=== PATIENT | male | born 1960 | race Caucasian/White ===

== ENCOUNTER → 2016-03-23 | Outpatient (CLI) | payer BC ==
[2016-03-23 13:55] LABS: INFLUENZA A PCR POS for Influ A (NEG); INFLUENZA B PCR Neg for Influ B (NEG)
== END | disposition home or self-care (01) ==
LOC: C.LABBFT 10:02
PROVIDERS: ATTEND Internal Medicine
DX: R68.89 Other general symptoms and signs (principal)

== ENCOUNTER 2017-01-10 04:14 | Emergency (ER) | payer BC ==
[~2017-01-10] VITALS: Ht 182.9 cm; Wt 93.9 kg
[2017-01-10 04:16] VITALS: Ht 182.9 cm; Wt 93.9 kg
[2017-01-10 04:19] VITALS: O2SAT 97
--- NOTE | 2017-01-10 04:42 | EMERGENCY ROOM VISIT NOTE ---
History Report prepared by Javier: Tacho Valle Under the Supervision of: Dr. Carola Ramirez D.O. First contact with patient: 04:18 Chief Complaint: CARDIAC ASSESSMENT Stated Complaint: TIGHTNESS IN CHEST History of Present Illness The patient is a 56 year old male who presents to the Emergency Room with complaints of persistent upper abdominal/chest pain that woke him from sleep this morning at 0300, 1.5 hours prior to arrival. The patient states that he was woken up from sleep due to a pain in his central abdominal region which slowly radiated upward into his chest. He describes the pain as a "pressure." The pain is worsened with deep breathing, and it not radiating to any other locations. States had burgers and emmanuel with [employer] for dinner last night. States felt fine prior to going to bed. Denies any other change in medications or change in diet. Patient states he takes a medication for high triglycerides but has no other medical problems. 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 A total of 10 systems reviewed and were otherwise negative. Past Medical & Surgical Medical Problems: (1) No significant medical problems Surgical Problems: (1) No significant past surgical history Family History Diabetes mellitus FHx: cancer Gallbladder disease Hypertension Social History Smoking Status: Former Smoker Alcohol Use: none Marital Status: Occupation Status: employed Current/Historical Medications Scheduled Fish Oil ([place]-3), 1 CAP PO DAILY Gemfibrozil (Lopid), 600 MG PO BID Multiple Vitamins W/ Minerals (Mens 50+ Multi Vitamin &), 1 TAB PO DAILY Paroxetine Hcl (Paxil), 10 MG PO DAILY Potassium (Potassium), 99 MG PO DAILY Scheduled PRN Loratadine (Claritin), 10 MG PO DAILY PRN for allergy season Allergies Coded Allergies: Acetaminophen (Verified Allergy, Severe, urticaria, 01/10/17) Hydrocodone (Verified Allergy, Severe, urticaria, 01/10/17) Physical Exam Vital Signs Date Time Temp Pulse Resp B/P (MAP) Pulse Ox O2 Delivery O2 Flow Rate FiO2 01/10/17 11:21 71 18 137/88 95 01/10/17 10:30 67 16 138/98 94 Room Air 01/10/17 10:06 70 18 136/91 94 Room Air 01/10/17 08:26 67 01/10/17 07:52 66 16 151/95 99 Room Air 01/10/17 06:30 61 15 160/102 96 01/10/17 06:00 58 16 180/103 96 01/10/17 05:30 57 11 96 01/10/17 05:14 59 16 174/108 96 Room Air 01/10/17 05:13 174/108 01/10/17 05:00 57 19 01/10/17 04:31 97 Room Air 01/10/17 04:24 52 01/10/17 04:19 97 Room Air 01/10/17 04:16 57 22 199/104 97 Room Air Physical Exam GENERAL: alert, well appearing, well nourished, no distress, non-toxic EYE EXAM: normal conjunctiva, PERRL and EOM's grossly intact OROPHARYNX: no exudate, no erythema, lips, buccal mucosa, and tongue normal and mucous membranes are moist NECK: supple, no nuchal rigidity, no adenopathy, non-tender LUNGS: Clear to auscultation. Normal chest wall mechanics HEART: no murmurs, S1 normal and S2 normal ABDOMEN: abdomen soft, non-tender, normo-active bowel sounds, no masses, no rebound or guarding. BACK: Back is symmetrical on inspection and there is no deformity, no midline tenderness, no CVA tenderness. SKIN: no rashes and no bruising UPPER EXTREMITIES: upper extremities are grossly normal. LOWER EXTREMITIES: No pitting edema. NEURO EXAM: Normal sensorium Medical Decision & Procedures ER Provider Diagnostic Interpretation: Radiology results have been interpreted by me. CHEST X-RAY: Chest X-ray reveals no cardiomegaly, no pleural effusion, no wide mediastinum, no focal infiltrates. ABDOMEN X-RAY: Imaging shows scattered stool, no definite SVO, no free air. ABDOMEN 2VIEW W/PA CHEST RTN CLINICAL HISTORY: abd pain pain COMPARISON STUDY: No previous studies for comparison. FINDINGS: The soft tissues, psoas shadows, renal outlines and intestinal gas pattern appear normal. There is no evidence for bowel obstruction. There is no evidence for free intraperitoneal air. No abnormal abdominal calcifications are seen. A frontal view of the chest was performed and is unremarkable. Mild nonobstructive ileus IMPRESSION: Mild nonobstructive ileus. Negative chest. The above report was generated using voice recognition software. It may contain grammatical, syntax or spelling errors. Electronically signed by: Quan Cronin M.D. 01/10/2017 6:42 AM Dictated Date/Time: 01/10/2017 6:41 AM [~ rep ct add3]] ABDOMEN AND PELVIS CT WITH IV CONTRAST CT DOSE: 591.27 mGy.cm HISTORY: Acute generalized abdominal pain with nausea abd pain, nausea TECHNIQUE: Multiaxial CT images of the abdomen and pelvis were performed following the use of intravenous contrast. A dose lowering technique was utilized adhering to the principles of ALARA. COMPARISON STUDY: Acute abdominal series radiographs 01/10/2017. FINDINGS: Mild dependent subsegmental bibasilar atelectasis. Subtle linear 4 mm pulmonary nodule of the lateral segment right middle lobe as seen on image 12 series 3. Pleural-based 4 mm nodule of the right middle lobe seen on image 35 series 3. No pneumoperitoneum or pneumatosis. Coronary arterial calcifications are noted. The liver, spleen, pancreas and adrenal glands are unremarkable. Small lucencies are noted within the region of the gallbladder neck as seen on image 148 series 3 suggesting nitrogen gas containing cholelithiasis. There is mild diffuse gallbladder wall thickening with mild gallbladder distention. Subcentimeter low attenuating lesions of the left kidney are too small to characterize however suggest cysts. Right kidney is unremarkable. Ureters are unremarkable. There is mild wall thickening of the bladder, greatest anteriorly. Prostate is mildly enlarged. Mild mixed plaquing of the aorta. No bulky adenopathy. There is no bowel obstruction or focal bowel wall thickening. No significant dilated loops of bowel identified to suggest ileus. The appendix appears normal. Soft tissues are unremarkable. Multilevel endplate spurring is noted throughout the spine. IMPRESSION: 1. Mild gallbladder distention with mild diffuse edematous gallbladder wall thickening suggests acute cholecystitis. Foci of air within the gallbladder lumen suggests gas containing cholelithiasis. Correlate with right upper quadrant ultrasound. 2. No bowel obstruction or focal bowel wall thickening. 3. Prostatomegaly with mild wall thickening of the bladder suggesting sequela of chronic bladder outlet obstruction or cystitis. This could be correlated with urinalysis. Electronically signed by: Cruz Salas M.D. 01/10/2017 8:26 AM Dictated Date/Time: 01/10/2017 8:17 AM Laboratory Results 01/10/17 04:25 Red Blood Count 4.63, Mean Corpuscular Volume 90.3, Mean Corpuscular Hemoglobin 31.7, Mean Corpuscular Hemoglobin Concent 35.2, Mean Platelet Volume 9.9, Neutrophils (%) (Auto) 52.4, Lymphocytes (%) (Auto) 33.6, Monocytes (%) (Auto) 9.2, Eosinophils (%) (Auto) 3.6, Basophils (%) (Auto) 1.1, Neutrophils # (Auto) 3.99, Lymphocytes # (Auto) 2.55, Monocytes # (Auto) 0.70, Eosinophils # (Auto) 0.27, Basophils # (Auto) 0.08 01/10/17 04:25 Test 01/10/17 04:25 01/10/17 04:38 01/10/17 07:37 White Blood Count 7.60 K/uL (4.8-10.8) Red Blood Count 4.63 M/uL (4.7-6.1) Hemoglobin 14.7 g/dL (14.0-18.0) Hematocrit 41.8 % (42-52) Mean Corpuscular Volume 90.3 fL (80-100) Mean Corpuscular Hemoglobin 31.7 pg (25-34) Mean Corpuscular Hemoglobin Concent 35.2 g/dl (32-36) Platelet Count 316 K/uL (130-400) Mean Platelet Volume 9.9 fL (7.4-10.4) Neutrophils (%) (Auto) 52.4 % Lymphocytes (%) (Auto) 33.6 % Monocytes (%) (Auto) 9.2 % Eosinophils (%) (Auto) 3.6 % Basophils (%) (Auto) 1.1 % Neutrophils # (Auto) 3.99 K/uL (1.4-6.5) Lymphocytes # (Auto) 2.55 K/uL (1.2-3.4) Monocytes # (Auto) 0.70 K/uL (0.11-0.59) Eosinophils # (Auto) 0.27 K/uL (0-0.5) Basophils # (Auto) 0.08 K/uL (0-0.2) RDW Standard Deviation 41.3 fL (36.4-46.3) RDW Coefficient of Variation 12.6 % (11.5-14.5) Immature Granulocyte % (Auto) 0.1 % Immature Granulocyte # (Auto) 0.01 K/uL (0.00-0.02) Anion Gap 9.0 mmol/L (3-11) Est Creatinine Clear Calc Drug Dose 76.0 ml/min Estimated GFR () 72.4 Estimated GFR (Non- 62.5 BUN/Creatinine Ratio 14.5 (10-20) Calcium Level 9.1 mg/dl (8.5-10.1) Total Bilirubin 0.4 mg/dl (0.2-1) Aspartate Amino Transf (AST/SGOT) 18 U/L (15-37) Alanine Aminotransferase (ALT/SGPT) 37 U/L (12-78) Alkaline Phosphatase 106 U/L (45-117) Total Protein 7.6 gm/dl (6.4-8.2) Albumin 4.0 gm/dl (3.4-5.0) Globulin 3.6 gm/dl (2.5-4.0) Albumin/Globulin Ratio 1.1 (0.9-2) Lipase 151 U/L (73-393) Lactic Acid Level 1.5 mmol/L (0.4-2.0) Troponin I < 0.015 ng/ml (0-0.045) Laboratory results per my review. Medications Administered Medications (Trade) Dose Ordered Sig/Leora Route Start Time Stop Time Status Last Admin Dose Admin Al Hydroxide/Mg Hydroxide (Maalox Susp) 15 ml NOW STAT PO 01/10/17 06:00 01/10/17 06:01 DC 01/10/17 06:36 15 ML Famotidine 20 mg/ Syringe 5 ml @ 2.5 mls/min NOW ONCE IV 01/10/17 06:30 01/10/17 06:31 DC 01/10/17 06:36 2.5 MLS/MIN ECG Indication: chest pain Rate (beats per minute): 58 Rhythm: normal sinus Findings: no acute ischemic change, no ectopy, other (Normal [place] normal intervalst) ED Course 0426: The patient was evaluated in room B2. A complete history and physical exam was performed. 0557: I checked on the patient at this time. He feels better, but is still experiencing some discomfort. 0725: Patient reports no chest tightness or discomfort at this time, still feels some abdominal discomfort and was nauseated following the Maalox. 0836: Patient updated on CT results. Ultrasound ordered. Discussed with patient at bedside potential plans and disposition. Patient signed out to Dr. Serrano. Medical Decision Differential diagnosis: Etiologies such as cardiac ischemia, aortic dissection, pulmonary embolism, pneumonia, pneumothorax, musculoskeletal, infections, pericarditis, myocarditis , esophageal rupture, gastrointestinal, as well as others were entertained. HEART score 2 Pt with atypical presentation for ACS despite radiation of pain into chest. Pain improved by my exam, equal pulses and no radiation into back, low suspicion for vascular pathology. No relief with GI meds, CT scan revealed possible biliary pathology. VS stable throughout. Pt aware of all results and possible dispositions at time of sign out. Medication Reconcilliation Current Medication List: was personally reviewed by me Blood Pressure Screening Patient's blood pressure: Elevated blood pressure Blood pressure disposition: Elevated BP felt to be situational Impression Primary Impression: Abdominal pain Additional Impressions: Hypertension Cholelithiases Scribe Attestation The scribe's documentation has been prepared under my direction and personally reviewed by me in its entirety. I confirm that the note above accurately reflects all work, treatment, procedures, and medical decision making performed by me. Departure Information Referrals Romain Corley M.D. (PCP) Patient Instructions [facility] Problem Qualifiers Primary Impression: Abdominal pain Abdominal location: lower abdomen, unspecified Qualified Codes: R10.30 - Lower abdominal pain, unspecified Additional Impressions: Hypertension Hypertension type: essential hypertension Qualified Codes: I10 - Essential ( primary) hypertension Cholelithiases Cholelithiasis location: gallbladder Cholecystitis presence: without cholecystitis Biliary obstruction: without biliary obstruction Qualified Codes: K80.20 - Calculus of gallbladder without cholecystitis without obstruction
[2017-01-10 04:46] LABS: BASO % 1.1 %; BASO ABS # 0.08 K/uL (0-0.2); COMPLETE YES; EOS % 3.6 %; HEMATOCRIT 41.8 % (42-52); IG% 0.1 %; LYMPH % 33.6 %; LYMPH ABS # 2.55 K/uL (1.2-3.4); MEAN CELL VOLUME 90.3 fL (80-100); MEAN CORPUSCULAR HEMOGLOBIN 31.7 pg (25-34); MEAN CORPUSCULAR HGB CONC 35.2 g/dl (32-36); MEAN PLATELET VOLUME 9.9 fL (7.4-10.4); MONO % 9.2 %; NEUT % 52.4 %; PLATELET COUNT 316 K/uL (130-400); RED BLOOD COUNT 4.63 M/uL (4.7-6.1)
[2017-01-10 04:53] LABS: ALT/SGPT 37 U/L (12-78); AST/SGOT 18 U/L (15-37); BLOOD UREA NITROGEN 18 mg/dl (7-18); BUN/CREATININE RATIO 14.5 (10-20); CALCIUM 9.1 mg/dl (8.5-10.1); CARBON DIOXIDE 27 mmol/L (21-32); CHLORIDE 102 mmol/L (98-107); CREATININE 1.26 mg/dl (0.60-1.40); GLUCOSE 112 mg/dl (70-99); POTASSIUM 3.4 mmol/L (3.5-5.1); SODIUM 138 mmol/L (136-145)
[2017-01-10 04:58] LABS: ALB/GLOB RATIO 1.1 (0.9-2); ALKALINE PHOSPHATASE 106 U/L (45-117)
[2017-01-10] MEDS ORDERED: POTA99TA PO (05:07)
[2017-01-10] MEDS ORDERED: GEMF600T3 PO (05:07)
[2017-01-10] MEDS ORDERED: PARO10TA PO (05:07)
[2017-01-10] MEDS ORDERED: CLR10 PO (05:07)
[2017-01-10] MEDS ORDERED: MULT-599 PO (05:07)
[2017-01-10] MEDS ORDERED: OMEG10007 PO (05:07)
[2017-01-10] MEDS ORDERED: ALUMINUM/MAGNESIUM SUSP 30 ML UDC PO STA (06:00)
[2017-01-10] MEDS ORDERED: FAMOTIDINE 20MG/5ML IV PUSH IV STA (06:00)
[2017-01-10] MEDS ORDERED: FAMOTIDINE IV INJ 20 MG in SYRINGE 3 ML IV ONE (06:30)
--- NOTE | 2017-01-10 06:43 | DIAGNOSTIC IMAGING REPORT ---
ABDOMEN 2VIEW W/PA CHEST RTN CLINICAL HISTORY: abd pain pain COMPARISON STUDY: No previous studies for comparison. FINDINGS: The soft tissues, psoas shadows, renal outlines and intestinal gas pattern appear normal. There is no evidence for bowel obstruction. There is no evidence for free intraperitoneal air. No abnormal abdominal calcifications are seen. A frontal view of the chest was performed and is unremarkable. Mild nonobstructive ileus IMPRESSION: Mild nonobstructive ileus. Negative chest. The above report was generated using voice recognition software. It may contain grammatical, syntax or spelling errors. Electronically signed by: Quan Cronin M.D. 01/10/2017 6:42 AM Dictated Date/Time: 01/10/2017 6:41 AM
[2017-01-10] MEDS ORDERED: OPTIRAY 320 IV PRN (07:30)
[2017-01-10] MEDS ORDERED: DICYCLOMINE HCL 10 MG CAP PO ONE (08:15)
--- NOTE | 2017-01-10 08:27 | DIAGNOSTIC IMAGING REPORT ---
ABDOMEN AND PELVIS CT WITH IV CONTRAST CT DOSE: 591.27 mGy.cm HISTORY: Acute generalized abdominal pain with nausea abd pain, nausea TECHNIQUE: Multiaxial CT images of the abdomen and pelvis were performed following the use of intravenous contrast. A dose lowering technique was utilized adhering to the principles of ALARA. COMPARISON STUDY: Acute abdominal series radiographs 01/10/2017. FINDINGS: Mild dependent subsegmental bibasilar atelectasis. Subtle linear 4 mm pulmonary nodule of the lateral segment right middle lobe as seen on image 12 series 3. Pleural-based 4 mm nodule of the right middle lobe seen on image 35 series 3. No pneumoperitoneum or pneumatosis. Coronary arterial calcifications are noted. The liver, spleen, pancreas and adrenal glands are unremarkable. Small lucencies are noted within the region of the gallbladder neck as seen on image 148 series 3 suggesting nitrogen gas containing cholelithiasis. There is mild diffuse gallbladder wall thickening with mild gallbladder distention. Subcentimeter low attenuating lesions of the left kidney are too small to characterize however suggest cysts. Right kidney is unremarkable. Ureters are unremarkable. There is mild wall thickening of the bladder, greatest anteriorly. Prostate is mildly enlarged. Mild mixed plaquing of the aorta. No bulky adenopathy. There is no bowel obstruction or focal bowel wall thickening. No significant dilated loops of bowel identified to suggest ileus. The appendix appears normal. Soft tissues are unremarkable. Multilevel endplate spurring is noted throughout the spine. IMPRESSION: 1. Mild gallbladder distention with mild diffuse edematous gallbladder wall thickening suggests acute cholecystitis. Foci of air within the gallbladder lumen suggests gas containing cholelithiasis. Correlate with right upper quadrant ultrasound. 2. No bowel obstruction or focal bowel wall thickening. 3. Prostatomegaly with mild wall thickening of the bladder suggesting sequela of chronic bladder outlet obstruction or cystitis. This could be correlated with urinalysis. Electronically signed by: Cruz Salas M.D. 01/10/2017 8:26 AM Dictated Date/Time: 01/10/2017 8:17 AM
--- NOTE | 2017-01-10 09:57 | DIAGNOSTIC IMAGING REPORT ---
GALLBLADDER-ABD LIMITED HISTORY: 56 years-old Male abn CT, abd pain and nausea acute generalized abdominal pain with nausea. Suggested acute cholecystitis on comparison CT. COMPARISON: CT 01/10/2017 TECHNIQUE: Multiple real-time sonographic images of the abdominal right upper quadrant were obtained assessing grayscale appearance and color flow. FINDINGS: Pancreas is predominantly obscured by bowel gas. There is increased echogenicity of the liver suggesting fatty infiltration. Liver measures up to 18 cm in length. Mild gallbladder distention is noted with layering gallbladder stones and sludge. Edematous thickened gallbladder wall measures up to 7 mm circumferentially. No definite pericholecystic fluid collections. Sonographic Padgett sign was not reported. No intrahepatic biliary ductal dilation identified. Common bile duct is normal, 0.6 cm. Imaged right kidney is unremarkable without hydronephrosis. IMPRESSION: 1. Cholelithiasis and layering gallbladder sludge is noted in addition to edematously thickened bladder wall measuring up to 7 mm circumferentially. There was however no pericholecystic fluid and a sonographic Padgett sign was not reported. These findings are equivocal for acute cholecystitis. Correlate with clinical exam and laboratory values. A follow-up nuclear medicine hepatobiliary scan may also be beneficial if clinically indicated. 2. No biliary ductal dilation. The above report was generated using voice recognition software. It may contain grammatical, syntax or spelling errors. Electronically signed by: Cruz Salas M.D. 01/10/2017 9:56 AM Dictated Date/Time: 01/10/2017 9:51 AM
--- NOTE | 2017-01-10 11:12 | EMERGENCY ROOM VISIT NOTE ---
ED Visit Note First contact with patient: 10:59 56-year-old male with right upper quadrant abdominal pain was signed off to me from Dr. Ramirez at change of shift awaiting results of the ultrasound. That imaging study did return revealing no definite cholecystitis. The patient's white count is not elevated. Patient feels fine and would like to home. I did advise him that he will need a cholecystectomy in the near future. He is to make an appointment with his family physician this week. In the meantime, the patient was advised about avoiding fried or fatty foods.
[2017-01-10 11:21] VITALS: BP 137/88; PULSE 71; O2SAT 95
== END 2017-01-10 11:21 | disposition home or self-care (01) ==
LOC: C.EDB 04:14
DX: R10.30 Lower abdominal pain, unspecified (principal); I10 Essential (primary) hypertension; K80.20 Calculus of gallbladder without cholecystitis without obstruction; R10.11 Right upper quadrant pain; Z87.891 Personal history of nicotine dependence; Z83.3 Family history of diabetes mellitus; Z82.49 Family history of ischemic heart disease and other diseases of the circulatory system

== ENCOUNTER 2017-02-08 06:29 | Day surgery (SDC) | payer BC ==
[2017-02-01 15:29] VITALS: BMI 27.0
[~2017-02-08] VITALS: Ht 182.9 cm; Wt 92.4 kg
[~2017-02-08 06:29] MED LIST: AMLO5TAB3 PO; ASCA500 PO; CETI10TA84 PO; GEMF600T5 PO; GINK40TA3 PO; LACTATED RINGER'S 1000ML 1,000 ML IV SCH; MULT-599 PO; OMEG10007 PO; PARO10TA PO; POTA99TA PO
[2017-02-08] MEDS ORDERED: IBUP-1050 PO (06:59)
[2017-02-08 07:00] VITALS: BP 154/88; PULSE 65; TEMP 36.9; O2SAT 95; Ht 182.9 cm; Wt 92.4 kg
[2017-02-08] MEDS ORDERED: DEXAMETHASONE SOD INJ 4 MG/ML VIAL ONE (07:49)
[2017-02-08] MEDS ORDERED: ONDANSETRON INJ 2 MG/ML 2 ML VIAL ONE (07:49)
[2017-02-08] MEDS ORDERED: PROPOFOL IV EMULSION 10 MG/ML 20 ML VIAL IV ONE (07:49)
[2017-02-08] MEDS ORDERED: LIDOCAINE HCL 2% 2 ML VIAL (20MG/ML) ONE (07:49)
[2017-02-08] MEDS ORDERED: FENTANYL CITRATE INJ 50 MCG/1 ML 2 ML VIAL ONE (07:50)
[2017-02-08] MEDS ORDERED: MIDAZOLAM HCL 1 MG/ML 2ML VIAL ONE (07:50)
--- NOTE | 2017-02-08 08:14 | History & Physical Bridge Note ---
H&P Re-Evaluation Bridge Note: I have examined the patient, reviewed the History & Physical and in the interval since the performance of the History & Physical I have noted the following changes of clinical significance: No changes noted pt examined SO at bedside, all questions answered
[2017-02-08] MEDS ORDERED: TRAM-453 PO (08:15)
[2017-02-08] MEDS ORDERED: CEFAZOLIN SOD 1 GM VIAL ONE (08:19)
[2017-02-08] MEDS ORDERED: CONRAY 60% 50 ML VIAL ONE (08:21)
[2017-02-08] MEDS ORDERED: LIDOCAINE/EPINEPHRINE 1% 20 ML VIAL ONE (08:21)
[2017-02-08] MEDS ORDERED: HYDROmorphone INJ 1 MG/ML SYR IV PRN (08:30)
[2017-02-08] MEDS ORDERED: MEPERIDINE HCL 25 MG/ML CARP IV PRN ×2 (08:30→09:45)
[2017-02-08] MEDS ORDERED: ONDANSETRON INJ 2 MG/ML 2 ML VIAL IV PRN ×2 (08:30→09:45)
[2017-02-08] MEDS ORDERED: LABETALOL HCL IV 5 MG/ML 20ML IV PRN (08:30)
[2017-02-08] MEDS ORDERED: ATROPINE SULFATE 0.1 MG/ML 5ML SYR IV PRN (08:30)
[2017-02-08] MEDS ORDERED: FENTANYL CITRATE INJ 50 MCG/1 ML 2 ML VIAL IV PRN (08:30)
[2017-02-08] MEDS ORDERED: EpHEDrine SULFATE INJ 50 MG/ML AMP IV PRN (08:30)
[2017-02-08] MEDS ORDERED: KETOROLAC TROMETHAMINE 30 MG/ML VIAL ONE (09:23)
[2017-02-08] MEDS ORDERED: GLYCOPYRROLATE INJ 0.2 MG/ML VIAL ONE (09:23)
[2017-02-08] MEDS ORDERED: NEOSTIGMINE METHYLSULFATE 5 MG/5 ML SYR ONE (09:23)
[2017-02-08] MEDS ORDERED: EpHEDrine SULFATE INJ 50 MG/ML AMP ONE (09:24)
[2017-02-08] MEDS ORDERED: ROCURONIUM BROMIDE 10 MG/ML 5 ML VIAL IV ONE (09:26)
--- NOTE | 2017-02-08 09:29 | DIAGNOSTIC IMAGING REPORT ---
INTRAOPERATIVE CHOLANGIOGRAM HISTORY: Post cholecystectomy. FLUOROSCOPY TIME: 2 seconds. 3 fluoroscopic spot images of the right upper quadrant. FINDINGS: Fluoroscopy was provided for an intraoperative cholangiogram status post cholecystectomy. Contrast was injected through the cystic duct remnant. The common bile duct is normal in course and caliber. There are no filling defects seen within the common bile duct to suggest a retained stone. Contrast extends into the small bowel. There is no intrahepatic bile duct dilatation. IMPRESSION: Fluoroscopy provided for an intraoperative cholangiogram status post cholecystectomy. No filling defects within the common bile duct. Electronically signed by: José Miguel Noonan M.D. 02/08/2017 9:28 AM Dictated Date/Time: 02/08/2017 9:23 AM
[2017-02-08] MEDS ORDERED: LACTATED RINGER'S 1000ML 1,000 ML IV SCH (09:43)
--- NOTE | 2017-02-08 09:43 | Discharge Instructions ---
Discharge Instructions Date of Service Feb 08, 2017. Visit Reason for Visit: Cholelithiasis Discharge Discharge Diagnosis / Problem: laparoscopic cholecystectomy Discharge Goals Goal(s): Decrease discomfort Activity Recommendations Activity Limitations: as noted below Lifting Limitations: no more than 10 pounds Shower/Bathe: tomorrow Driving or Machine Use: resume 3 days after discharge Anesthesia . Post Anesthesia Instructions: If you have had General Anesthesia or IV Sedation: * Do not drive today. * Resume driving when surgeon permits. * Do not make important decisions or sign legal documents today. * Call surgeon for: 1. Temperature elevations greater than 101 degrees F. 2. Uncontrollable pain. 3. Excessive bleeding. 4. Persistent nausea and vomiting. 5. Medication intolerance (nausea, vomiting or rash). * For nausea and vomiting use only clear liquids such as: tea, soda, bouillon until nausea subsides, then gradually increase diet as tolerated. * If you have any concerns or questions, call your surgeon's office. If physician is unavailable and it is an emergency, call 911 or go to the nearest emergency room. . Instructions / Follow-Up Instructions / Follow-Up Dr. Nuñez office in 2-3 days for removal of the drain, call [phone] to schedule if you do not already have an appt or have any questions Empty drain bulb 2-3 times daily or as needed Diet Recommendations Recommended Home Diet: no limitations Procedures Procedures Performed: Laparoscopic Cholecystectomy with Cholangiogram Pending Studies Studies pending at discharge: no Medical Emergencies . Who to Call and When: Medical Emergencies: If at any time you feel your situation is an emergency, please call 911 immediately. . Non-Emergent Contact Non-Emergency issues call your: Surgeon Call Non-Emergent contact if: you have a fever, temperature is above 101.5, your pain is not controlled, wound has increased pain, you have any medication questions . . "Provider Documentation" section prepared by Rogers Herring. . [place] Drug Monitoring Program Search Results: no issues identified
[2017-02-08] MEDS ORDERED: TRAMADOL HCL 50 MG TAB PO PRN (09:45)
--- NOTE | 2017-02-08 09:50 | [facility] Operative Report ---
Operative Report Operative Date Feb 08, 2017. Pre-Operative Diagnosis Cholelithiasis Post-Operative Diagnosis Same Procedure(s) Performed Laparoscopic Cholecystectomy with Cholangiogram Surgeon Dr Nuñez Case Technician Surgeon(s) Rogers Herring PA-C Estimated Blood Loss 5ML Findings ccc Specimens A. Gallbladder Drains 19 becca per stab Description of Procedure OR summary dictATED CONFIRMATION NUMBER [id number] I attest to the content of the Intraoperative Record and any orders documented therein. Any exceptions are noted below.
[2017-02-08 10:40] VITALS: BP 132/74; PULSE 63; TEMP 36.4; O2SAT 94
--- NOTE | 2017-02-08 10:43 | Anesthesiology Progress Note ---
Anesthesia Post Op Note Date & Time Feb 08, 2017 at 10:42 Vital Signs Pain Intensity: 3 Vital Signs Past 12 Hours Date Time Temp Pulse Resp B/P (MAP) Pulse Ox O2 Delivery O2 Flow Rate FiO2 02/08/17 10:30 36.7 70 12 135/86 95 Room Air 02/08/17 10:20 67 14 138/92 93 Room Air 02/08/17 10:10 64 17 142/87 93 Room Air 02/08/17 10:00 64 15 154/94 98 Oxymask 10 02/08/17 09:50 67 14 134/101 97 Oxymask 10 02/08/17 09:44 36.8 83 16 182/97 98 Oxymask 10 02/08/17 07:00 36.9 65 18 154/88 (110) 95 Room Air Notes Mental Status: alert / awake / arousable, participated in evaluation Pt Amnestic to Procedure: Yes Nausea / Vomiting: adequately controlled Pain: adequately controlled Airway Patency, RR, SpO2: stable & adequate BP & HR: stable & adequate Hydration State: stable & adequate Anesthetic Complications: no major complications apparent
--- NOTE | 2017-02-08 11:04 | OPERATIVE REPORT ---
DATE OF OPERATION: 02/08/2017 PREOPERATIVE DIAGNOSIS: Chronic cholecystitis, cholelithiasis. POSTOPERATIVE DIAGNOSIS: Same. PROCEDURE: Laparoscopic cholecystectomy, intraoperative cholangiogram. SURGEON: Dr. Nuñez. FARMER AND GRAZIER: Krishan Herring PA-C. OPERATION AND FINDINGS: SUMMARY: After induction of general endotracheal anesthesia the patient's abdomen was prepped with Betadine scrubbing solution and properly draped. I made a small incision supraumbilically sufficient enough to place a Veress needle followed by CO2 followed by 5 mm trocar. Point of entry inspected and no injury identified. Under direct visualization we placed a 5 mm epigastric port with preemptive local analgesia 1% Xylocaine and 2 subcostal ports 5 mm. Gallbladder was identified, placing under traction. Did not have any significant adhesions to the gallbladder. The batsheva hepatis was dissected out. We were able to get around the cystic duct, clipped it proximally at its takeoff. A small opening in the cystic duct was made. A #4 ureteral catheter transversed the abdominal wall and a 14 Angiocath was positioned in the cystic duct. Serial x-rays were taken that showed free flow into the duodenum. No obstruction and no evidence of any common bile duct stones. At this point the cholangiocath was removed. The cystic duct was doubly clipped and divided. The cystic artery was identified, clipped and divided. Gallbladder was removed in antegrade fashion leaving as much of the posterior peritoneum as possible, though the patient did bleed quite easily from the liver edge in multiple areas. Gallbladder was then removed intact up to the epigastric port site and had multiple stones, mostly cholesterol and some sludge. The area was then checked for hemostasis and appeared satisfactory. We did cauterize few areas and as stated had easily bleeding was appreciated from the liver parenchyma itself, although grossly looked normal. I elected then to drain this with 19 Aaron drain subhepatically, bring it medially in the epigastric port taken out lateral port, attached to skin edges with 2-0 silk placed subhepatically. Prior to closing, we placed a camera in subcostal ports and visualized the umbilical opening. There were no adhesions or any defect appreciated. Individual trocars removed, last umbilical trocar. 0 Vicryl suture was used to close the epigastric trocar site even though it was a 5 mm. We slightly enlarged it with a Adrien or Negra to try to extract the stones and the other ones were 4-0 Monocryl. Steri-Strips applied. The procedure was tolerated well by the patient. Estimated blood loss approximately 5 mL. The patient was taken to recovery room in good condition. I attest to the content of the Intraoperative Record and any orders documented therein. Any exception s are noted below.
[2017-02-08 11:10] VITALS: BP 118/75; PULSE 68; O2SAT 93
[2017-02-08 11:45] VITALS: BP 116/65; PULSE 68; TEMP 36.7; O2SAT 94
[2017-02-08 12:45] VITALS: BP 120/65; PULSE 68; TEMP 36.7; O2SAT 95; O2SAT 98
== END 2017-02-08 14:05 | disposition home or self-care (01) ==
LOC: C.ACU 06:29
PROVIDERS: ATTEND Surgery
DX: K80.10 Calculus of gallbladder with chronic cholecystitis without obstruction (principal); I10 Essential (primary) hypertension; F32.9 Major depressive disorder, single episode, unspecified; E78.01 Familial hypercholesterolemia; E78.1 Pure hyperglyceridemia; Z83.3 Family history of diabetes mellitus; Z82.5 Family history of asthma and other chronic lower respiratory diseases; Z80.3 Family history of malignant neoplasm of breast; Z80.42 Family history of malignant neoplasm of prostate; Z80.0 Family history of malignant neoplasm of digestive organs; Z82.49 Family history of ischemic heart disease and other diseases of the circulatory system

== ENCOUNTER → 2017-09-13 | Outpatient (CLI) | payer BC ==
[~2017-09-13] MED LIST changes: +GEMF600T3 PO; -GEMF600T5 PO; +IBUP-1050 PO; -LACTATED RINGER'S 1000ML 1,000 ML IV SCH
--- NOTE | 2017-09-13 09:01 | DIAGNOSTIC IMAGING REPORT ---
(CHEST) THORAX WITHOUT CT DOSE: 358.22 mGy.cm HISTORY: Lung nodule R91.8 Multiple pulmonary nodules TECHNIQUE: Multiaxial CT images of the chest were performed without contrast. A dose lowering technique was utilized adhering to the principles of ALARA. COMPARISON: None. FINDINGS: The lungs are clear. The mediastinal vascular structures are within normal limits. No mediastinal or hilar lymphadenopathy. No pleural effusion or pneumothorax. Limited views of the upper abdomen demonstrate a normal liver and spleen. 4 mm nonspecific nodule right middle lobe. Minimal apical fibrotic and pleural reactive change. No significant mediastinal or hilar adenopathy. IMPRESSION: 1. 4 mm nonspecific nodule right middle lobe. 2. Minimal apical fibrotic pleural reactive change.. 3. Otherwise negative study. Follow-up per Fleischner criteria. Please refer to below summary of Fleischner criteria recommendations for follow-up of incidental CT nodules (Dav Miller, Guidelines for management of small pulmonary nodules detected on CT scans: A statement from the Fleischner Society, Radiology 237: [phone].) SOLID NODULES Solitary nodule size: <6 mm * low risk patients: no follow-up needed * high risk patients: optional CT at 12 months Solitary nodule size: 6-8 mm * low risk patients: follow-up at 6-12 months, then consider further follow-up at 18-24 months * high risk patients: initial follow-up CT at 6-12 months and then at 18-24 months if no change Solitary nodule size: >8 mm * either low or high risk patients - consider follow-up CT at 3 months, and/or CT-PET, and/or biopsy Multiple nodules size: <6 mm * low risk patients: no routine follow-up * high risk patients: optional CT at 12 months Multiple nodules size: 6-8 mm * low risk patients: follow-up at 3-6 months, then consider further follow-up at 18-24 months * high risk patients: follow-up at 3-6 months, then at 18-24 months if no change Multiple nodules size: >8 mm * low risk patients: follow-up at 3-6 months, then consider further follow-up at 18-24 months * high risk patients: follow-up at 3-6 months, then at 18-24 months if no change Note: newly detected indeterminate nodule in persons 35 years of age or older. * low risk patients: minimal or absent history of smoking and/or other known risk factors * high risk patients: history of smoking or of other known risk factors (e.g. first degree relative with lung cancer, or exposure to asbestos, radon, uranium) * if a nodule up to 8 mm is partly solid or is ground glass further follow-up is required after 24 months to exclude possible slow growing adenocarcinoma (ROYA) SUBSOLID NODULES Solitary pure ground-glass nodule * nodule size <6 mm - no CT follow-up required * nodule size >=6 mm - follow-up CT at 6-12 months, then every 2 years until 5 years Solitary part-solid nodule * nodule size <6 mm - no CT follow-up required * nodule size >=6 mm - follow-up CT at 3-6 months. If unchanged, and solid component remains <6 mm, then annual follow-up for 5 years Multiple subsolid nodules * nodule size <6 mm - follow-up CT at 3-6 months, consider further follow-up at 2 and 4 years if stable * nodule size >=6 mm - follow-up CT at 3-6 months, subsequent management based on the most suspicious nodule(s) . The above report was generated using voice recognition software. It may contain grammatical, syntax or spelling errors. Electronically signed by: Quan Cronin M.D. 09/13/2017 8:59 AM Dictated Date/Time: 09/13/2017 8:53 AM
== END | disposition home or self-care (01) ==
LOC: C.CTS 08:22
PROVIDERS: ATTEND Internal Medicine
DX: R91.8 Other nonspecific abnormal finding of lung field (principal)

== ENCOUNTER 2025-01-17 11:46 | Inpatient (IN) ==
--- NOTE | 2025-01-17 12:01 | Emergency Department Note ---
Impression & Plan Acute hypoxemic respiratory failure, Pneumonia, Chest tightness ED Provider Note NAME: MARANDA LAUREANO AGE: 64 SEX: M : 1960 ARRIVES VIA: Walk-In INFORMANT: Patient, ED PROVIDER(S): Blane Stover MD CHIEF COMPLAINT: Chest tightness, hypoxia, outpatient referral MEDICAL DECISION MAKING: Patient presents due to concern for lower respiratory symptoms chest tightness and hypoxia. IV was established and blood work was obtained. Patient ordered IV fluids as well as DuoNeb treatment. Patient's blood work was noted to be white count of 21,000. Given this even in light of no evidence of obvious consolidated pneumonia IV Rocephin and p.o. azithromycin ordered. Patient's hemoglobin of 13.8. Platelet count of 513. Patient's kidney function is unremarkable. Sodium of 131. Potassium 3.3. Lactate negative. COVID flu RSV negative. Given the patient's associated hypoxia and white count to believe the patient would benefit from admission. I did speak the on-call hospitalist Dr. Condon and the patient was admitted to the medicine service. I did update the patient he was comfortable plan of care as it was his . Critical Care: I have personally spent 37 minutes of critical care time in direct management of this patient. This includes bedside care, interpretation of diagnostic studies, and testing, discussion with consultants, patient, and family members, and other require inpatient management activities. This 37 minutes is in excess of all separately billable procedures. Discussion w/ other healthcare providers: Dr. Condon inpatient medicine service Prior /Outside records reviewed: I reviewed part of a PCP's visit from earlier today. Patient was seen by Jolie Hughes and was referred for hypoxia and tachycardia. Differential diagnosis: Cardiac ischemia, aortic dissection, pulmonary embolism, pneumothorax, pneumonia, pericarditis, myocarditis, GERD, cholecystitis, pancreatitis, musculoskeletal, as well as other pathologies were considered. Diagnostics, as interpreted by me: ECG: Normal sinus rhythm, rate of 91, normal intervals, normal axis no ST elevations or T WI. Cardiac monitoring: An order was placed for continuous cardiac monitoring. The monitor shows a rate of 89 with sinus rhythm. Patient was placed on pulse oximetry Medical decision rules: Wells score Imaging studies: I informally interpreted the patient's chest x-ray does not show evidence of obvious pneumonia with formal report to follow. HPI: Patient presents due to concern for chest tightness and shortness of breath. The patient has had associated productive discolored sputum over the last several days. No known sick contacts or recent travel. Denies any leg swelling or calf pain no history of smoking. He denies any prior history of heart or lung disease. No reported falls or trauma. No recent large gatherings over the . The patient was seen at the PCPs office and was noted to be hypoxic. Patient does not have an oxygen requirement at home. He denies any history of heart failure. He does have associated MERCEDES. No orthopnea. PAST MEDICAL HISTORY: See Below PAST SURGICAL HISTORY: See Below SOCIAL HISTORY: See Below HOME MEDICATIONS: See Below ALLERGIES: See Below VITALS: See Below PHYSICAL EXAMINATION: GENERAL: NAD, non-toxic. Wearing glasses. EYE EXAM: Normal conjunctiva. PERRL, no anisocoria and EOM's grossly intact w/o pain. OROPHARYNX: Moist mucus membranes, grossly normal dentition. NECK: Trachea midline, no stridor. LUNGS: Rhonchi throughout. Normal chest wall mechanics. HEART: NSR, no MRG. ABDOMEN: Abdomen soft, non-tender, no masses, no rebound or guarding. BACK: No CVA TTP. SKIN: No rashes and no bruising. UPPER EXTREMITIES: Upper extremities are grossly normal. LOWER EXTREMITIES: Grossly normal, no edema. Negative Homans' sign bilaterally. NEURO EXAM: Awake and alert, follows commands, no obvious facial asymmetry, normal speech, moves all 4 extremities. Past Med/Surg History Problem List (Updated 01/17/25 @ 17:06 by Blane Stover MD) Chest tightness (Acute) Acute hypoxemic respiratory failure (Acute) Pneumonia (Acute) Depression Hypertension (Chronic) Hypertriglyceridemia Encounter for health maintenance examination in adult Cervical lymphadenopathy (Acute) Anemia (Acute) Multiple pulmonary nodules (Acute) Medical History Dyslipidemia Surgical History History of mandibular surgery S/T FRACTURE History of colonoscopy History of cholecystectomy 2017 Family History Mother Stroke Diabetes Hypertension Hyperlipidemia Brother Hypertension Prostate cancer Sister Lung cancer Uncle Colorectal cancer Grandfather (Maternal) Myocardial infarction Denies family history of Ovarian cancer Breast cancer Social History Smoking Status: Never smoker Tobacco Type: Cigarettes Age Started Using Tobacco: 46; Age Quit Using Tobacco: 46; packs per day: 1; Cigarettes Per Day: HX OF PREVIOUS USE, NONE FOR MANY YEARS; Second Hand Exposure: No; Do You Dip or Chew Tobacco: No; Hx Alcohol Use: Yes Alcohol type: hard liquor Alcohol Intake Frequency: Monthly or Less Hx Substance Use: No Preferred Language: Algerian Communication Ability: Effective Visual Impairment: Limited Hearing Ability: Normal Brands Editor Required: No Beliefs That Will Affect Care: None marital status: Current Living Situation: Parent Current Living Situation Comment: home with current occupational status: employed current occupation: Processor How many Children do You have: 1 Other Information That Helps Us Care for You: No Feels Safe at Home: Yes Safety Concerns: Feels Safe At This Time Childhood Exposure to Second-Hand Smoke: Yes Diet: regular caffeine: Yes during the past year weight has: remained stable Dental Care, Regularly: No Physical Activity Frequency: Does not Exercise Seatbelt Use: sometimes Sunscreen Use: Yes (sometimes) Do you think of yourself as: straight/heterosexual Assistive Devices: Denture - Upper, Denture - Lower and Glasses Assistive Devices Comment: currently on 2LNC, room air baseline Allergies Allergies Allergy/AdvReac Type Severity Reaction Status Date / Time hydrocodone Allergy Severe urticaria Verified 01/17/25 11:11 hydrochlorothiazide AdvReac cramping Verified 01/17/25 11:11 Home Meds Home Medications Medication Instructions Recorded Confirmed ginkgo biloba 60 mg capsule 60 mg PO DAILY 05/15/18 01/17/25 multivitamin 1 tab PO DAILY 05/15/18 01/17/25 cetirizine 10 mg chewable tablet 10 mg PO DAILY 09/29/18 01/17/25 ascorbic acid (vitamin C) 500 mg 1,000 mg PO BID 09/02/22 01/17/25 capsule [id number] C-Mn 500 0 cap PO DAILY 09/02/22 01/17/25 mg-400 mg capsule (Glucosamine Chondroitin Maximum Strength) omega-3 fatty acids-fish oil 360 1 cap PO DAILY 09/02/22 01/17/25 mg-1,200 mg capsule (Fish Oil) amlodipine 10 mg tablet (Norvasc) 0 mg PO DAILY 01/17/25 01/17/25 gemfibrozil 600 mg tablet 0 mg PO BID 01/17/25 01/17/25 Previous Rx's Medication Instructions Recorded albuterol sulfate 90 mcg/actuation 2 puff inhalation Q6H PRN 03/18/22 aerosol inhaler shortness of breath or wheezing #6.7 grams losartan 100 mg tablet 100 mg PO DAILY #90 tabs 02/06/24 paroxetine HCl 30 mg tablet 30 mg PO DAILY #90 tabs 02/06/24 spironolactone 25 mg tablet 25 mg PO DAILY 90 days #90 tabs 02/06/24 Results & Data (ED) Vital Signs Vital Signs - 24 hr 01/17/25 11:51 01/17/25 12:11 01/17/25 12:37 Temperature 36.9 C Temperature Source Oral Pulse Rate 105 H 90 Pulse Rate [Apical] Pulse Rhythm [Apical] Respiratory Rate 22 Respiratory Effort / Characteristics Respiratory Pattern Blood Pressure 147/94 H Blood Pressure [Right Arm] Blood Pressure Mean 111 Blood Pressure Mean [Right Arm] Pulse Oximetry 88 L 89 L Oxygen Delivery Method Room Air Nasal Cannula Oxygen Flow Rate 0 Sepsis Recent Fever Within 48 Hours No Sepsis New/Unexplained Change in Mental Status No Sepsis Action Taken by Nursing No Action Required Fraction of Inspired Oxygen - Titration 1 Pulse Oximetry Post Tiitration 93 01/17/25 14:00 Temperature Temperature Source Pulse Rate Pulse Rate [Apical] 95 H Pulse Rhythm [Apical] Regular Respiratory Rate 20 Respiratory Effort / Characteristics Spontaneous Respiratory Pattern Regular Blood Pressure Blood Pressure [Right Arm] 120/82 Blood Pressure Mean Blood Pressure Mean [Right Arm] 94 Pulse Oximetry 95 Oxygen Delivery Method Nasal Cannula Oxygen Flow Rate 2 Sepsis Recent Fever Within 48 Hours Sepsis New/Unexplained Change in Mental Status Sepsis Action Taken by Nursing Fraction of Inspired Oxygen - Titration Pulse Oximetry Post Tiitration Home Medications Current Medication List: was personally reviewed by me Laboratory Data Attestation: I reviewed the patient's lab results. 01/17/25 16:06 01/17/25 16:06 Lab Results 01/17/25 Range/Units 12:12 WBC 21.81 H (4.8-10.8) K/ul RBC 4.35 L (4.70-6.10) M/uL Hgb 13.8 L (14.0-18.0) g/dL Hct 37.1 L (42.0-52.0) % MCV 85.3 (80.0-100.0) fL MCH 31.7 (25.0-34.0) pg MCHC 37.2 H (32.0-36.0) g/dL RDW Std Deviation 36.6 (36.4-46.3) fL RDW Coeff of Jessica 11.9 (11.5-14.5) % Plt Count 513 H (130-400) K/uL MPV 9.3 L (9.4-12.4) fL Immature Gran % (Auto) 0.8 % Neut % (Auto) 83.8 % Lymph % (Auto) 5.3 % [place] % (Auto) 9.7 % Eos % (Auto) 0.0 % Baso % (Auto) 0.4 % Neut # (Auto) 18.27 H (1.40-6.50) K/uL Lymph # (Auto) 1.15 L (1.20-3.40) K/uL [place] # (Auto) 2.12 H (0.11-0.59) K/uL Eos # (Auto) 0.01 (0.00-0.50) K/uL Baso # (Auto) 0.09 (0.00-0.20) K/uL Immature Gran # (Auto) 0.17 (0.01-0.20) K/uL PT 12.5 H (9.0-12.0) Seconds INR 1.2 H (0.9-1.1) APTT 28 (21-31) Seconds PTT Ratio 1.0 Sodium 131 L (136-145) mmol/L Potassium 3.3 L (3.5-5.1) mmol/L Chloride 95 L (98-107) mmol/L Carbon Dioxide 23 (21-32) mmol/L Anion Gap 13 H (3-11) BUN 17 (6-23) mg/dl Creatinine 0.89 (0.6-1.4) mg/dl Est Cr Clr Drug Dosing 84.3 ml/min eGFR 94.51 BUN/Creatinine Ratio 19.1 (10-20) Glucose 133 H (70-99(Fasting)) mg/dl Calcium 8.6 (8.6-10.3) mg/dl Magnesium 1.9 (1.7-2.4) mg/dl Total Bilirubin 0.9 (0.2-1.0) mg/dl AST 15 (13-39) U/L ALT 11 (7-52) U/L Alkaline Phosphatase 105 H (34-104) U/L Troponin I High Sens 6.2 (0-20) pg/ml Total Protein 7.9 (6.0-8.3) gm/dl Albumin 4.3 (3.4-5.0) gm/dl Globulin 3.6 (2.5-4.0) gm/dl Albumin/Globulin Ratio 1.2 (0.9-2) Procalcitonin 0.05 (0-0.5) ng/ml SARS-CoV-2 (PCR) NEGATIVE (Negative) Influenza Type A (PCR) Negative (Neg) Influenza Type B (PCR) Negative (Neg) RSV (RT-PCR) Negative (Neg) Administered Medications Lactated Ringer's (Lr) 1,000 mls @ 80 mls/hr IV .[id number] JOSE LUIS Stop: 01/20/25 14:29 Last Admin: 01/17/25 15:22 Dose: 80 mls/hr Documented By: marco Discontinued Medications Albuterol (Albut/Ipratrop 3mg/0.5mg Neb 3 Ml Vial) 3 ml INH NOW STA Stop: 01/17/25 12:10 Last Admin: 01/17/25 12:23 Dose: 3 ml Documented By: BRIAN Albuterol (Albut/Ipratrop 3mg/0.5mg Neb 3 Ml Vial) 3 ml NEB NOW STA; Protocol Stop: 01/17/25 14:10 Last Admin: 01/17/25 14:35 Dose: 3 ml Documented By: MARCI Azithromycin (Azithromycin 250 Mg Tab) 500 mg PO NOW ONE Stop: 01/17/25 13:14 Last Admin: 01/17/25 13:59 Dose: 500 mg Documented By: MARCI Sodium Chloride (Nss) 500 mls @ 999 mls/hr IV .Q31M STA Stop: 01/17/25 12:39 Last Infusion: 01/17/25 13:24 Dose: Infused Documented By: Admin: 01/17/25 12:25 Dose: 999 mls/hr Documented By: CAP Ceftriaxone Sodium (Rocephin) 2,000 mg in 50 mls @ 100 mls/hr IV NOW STA Stop: 01/17/25 13:42 Last Admin: 01/17/25 13:59 Dose: 100 mls/hr Documented By: MARCI Sodium Chloride (Nss) 500 mls @ 999 mls/hr IV .Q31M ONE Stop: 01/17/25 13:46 Last Admin: 01/17/25 13:59 Dose: 999 mls/hr Documented By: MARCI Imaging Data Radiologist's Impression: Chest X-Ray 01/17/25 12:09 XR chest 1V portable HISTORY: 64 years-old Male Dyspnea acute shortness of breath COMPARISON: 08/19/2024 TECHNIQUE: AP view the chest FINDINGS: Cardiomediastinal and hilar silhouettes are within normal limits. No pneumothorax, pleural effusion, airspace consolidation or pulmonary edema. Bones of the chest appear grossly intact. IMPRESSION: No acute process. ACT 112: Negative or not required by law. The above report was generated using voice recognition software. It may contain grammatical, syntax or spelling errors. Electronically signed by: Rui Salas M.D. 01/17/2025 1:10 PM Discharge Plan Visit Data Chief Complaint: Respiratory Problems Stated Complaint: PNEUMONIA, TIGHT BREATHING ED Provider: Blane Stover Discharge Problem: Acute hypoxemic respiratory failure, Pneumonia, Chest tightness Patient Disposition: Admitted As Inpatient Condition: Good Discharge Instructions Interventions: ED Discharge Assessment Last Done: 01/17/25 15:36 Discharge Problem: Pneumonia Qualifiers: Pneumonia type: due to unspecified organism Laterality: unspecified laterality Lung location: unspecified part of lung Qualified Code(s): J18.9 - Pneumonia, unspecified organism
[2025-01-17] MEDS: ALBUT/IPRATROP 3MG/0.5MG NEB 3 ML VIAL INH STA (12:23)
[2025-01-17] MEDS: SODIUM CHLORIDE 0.9% 500 ML IV STA (12:25)
[2025-01-17 12:51] LABS: Alanine Aminotransferase 11.0 U/L (7-52); Albumin Globulin Ratio 1.2 (0.9-2); Albumin Level 4.3 gm/dl (3.4-5.0); Alkaline Phosphatase 105.0 U/L (34-104); Anion Gap 13.0 (3-11); Bilirubin,Total 0.9 mg/dl (0.2-1.0); Blood Urea Nitrogen 17.0 mg/dl (6-23); Calcium 8.6 mg/dl (8.6-10.3); Carbon Dioxide 23.0 mmol/L (21-32); Chloride 95.0 mmol/L (98-107); Creatinine Clr Calc Pharmacy 84.3 ml/min; Globulin 3.6 gm/dl (2.5-4.0); Glucose 133.0 mg/dl (70-99(Fasting)); Magnesium 1.9 mg/dl (1.7-2.4); Potassium 3.3 mmol/L (3.5-5.1); Sodium 131.0 mmol/L (136-145); Total Protein 7.9 gm/dl (6.0-8.3)
[2025-01-17 12:58] LABS: INR 1.2 (0.9-1.1); Partial Thromboplastin Time 28 Seconds (21-31); Prothrombin Time 12.5 Seconds (9.0-12.0)
[2025-01-17 13:04] LABS: Hematocrit (blood only) 37.1 % (42.0-52.0); Hemoglobin 13.8 g/dL (14.0-18.0); Immature Granulocytes # (auto) 0.17 K/uL (0.01-0.20); Immature Granulocytes % (auto) 0.8 %; Mean Corpuscular Hemoglobin 31.7 pg (25.0-34.0); Mean Corpuscular Volume 85.3 fL (80.0-100.0); Platelet Count 513 K/uL (130-400); RDW Standard Deviation 36.6 fL (36.4-46.3); Red Blood Count 4.35 M/uL (4.70-6.10); White Blood Count 21.81 K/ul (4.8-10.8)
--- NOTE | 2025-01-17 13:11 | XRay Report ---
XR chest 1V portable HISTORY: 64 years-old Male Dyspnea acute shortness of breath COMPARISON: 08/19/2024 TECHNIQUE: AP view the chest FINDINGS: Cardiomediastinal and hilar silhouettes are within normal limits. No pneumothorax, pleural effusion, airspace consolidation or pulmonary edema. Bones of the chest appear grossly intact. IMPRESSION: No acute process. ACT 112: Negative or not required by law. The above report was generated using voice recognition software. It may contain grammatical, syntax o r spelling errors. Electronically signed by: Rui Salas M.D. 01/17/2025 1:10 PM
--- NOTE | 2025-01-17 13:25 | Electrocardiogram Report ---
Test Reason : Blood Pressure : */* mmHG Vent. Rate : 91 BPM Atrial Rate : 91 BPM P-R Int : 174 ms QRS Dur : 84 ms QT Int : 358 ms P-R-T Axes : 41 1 50 degrees QTcB Int : 440 ms Normal sinus rhythm Normal ECG When compared with ECG of 19-Aug-2024 15:11, Vent. rate has increased by 30 bpm QT has lengthened Confirmed by Moe Kent ([id number]) on 01/17/2025 1:25:09 PM Referred By: REFERRED SELF Confirmed By: Moe Kent
[2025-01-17 13:31] LABS: Influenza A virus by PCR Negative (Neg); Influenza B virus by PCR Negative (Neg); SARS CoV2 RNA(COVID-19) Ceph NEGATIVE (Negative)
[2025-01-17] MEDS: AZITHROMYCIN 250 MG TAB PO ONE (13:59)
[2025-01-17] MEDS: cefTRIAXone SODIUM 2,000 MG/50 ML BAG IV STA (13:59)
[2025-01-17] MEDS: SODIUM CHLORIDE 0.9% 500 ML IV ONE (13:59)
--- NOTE | 2025-01-17 14:17 | History & Physical Report ---
Date of Service January 17, 2025 Assessment & Plan (1) Depression: (2) Hypertension: (3) Hypertriglyceridemia: (4) Pneumonia: Plan 64 male Depression hypertension hyperlipidemia smoking who Presented to clinic earlier today with productive cough Chest tightness generalized feeling of unwellness and noted to be hypoxic therefore redirected to ED. Here he is noted to be Rhonchorous on examination and hypoxic placed on 2 L O2. Chest x-ray unrevealing. Respiratory PCR negative. White blood cell count 21. ED requesting admission with concern for evolving pneumonia. No pressure-like or typical chest pain. No other ischemic symptoms nausea lightheadedness diaphoresis. EKG unrevealing and troponin negative. Suspect evolving CAP Supportive care Pulmonary toilet as needed. As needed nebs Send sputum if expectorates Empirical IV Rocephin azithromycin SIRS+/sepsis in setting of the above IVFs Check and trend lactate until cleared procalcitonin Acute hypoxic respiratory failure Secondary to pneumonia Wean O2 Hypertension Continue home medications Hyperlipidemia Continue home medications Depression Continue mood stabilizers DVT prophylaxis Full code Disposition admission anticipate at least 48 hours hospitalization for IV abx History of Present Illness Chief Complaint: cough Primary Care Provider: Keo Avila DO 64 male Depression hypertension hyperlipidemia smoking who Presented to clinic earlier today with productive cough Chest tightness generalized feeling of unwellness and noted to be hypoxic therefore redirected to ED. Here he is noted to be Rhonchorous on examination and hypoxic placed on 2 L O2. Chest x-ray unrevealing. Respiratory PCR negative. White blood cell count 21. ED requesting admission with concern for evolving pneumonia. No pressure-like or typical chest pain. No other ischemic symptoms nausea lightheadedness diaphoresis. EKG unrevealing and troponin negative. No longer with CP at time of evaluation feels better after receiving nebs. at bedside we Discussed everything extensively they were appreciative Awaiting completion of home med rec Allergies Allergy/AdvReac Type Severity Reaction Status Date / Time hydrocodone Allergy Severe urticaria Verified 01/17/25 11:11 hydrochlorothiazide AdvReac cramping Verified 01/17/25 11:11 Home Medications Medication Instructions Recorded Confirmed Type ginkgo biloba 60 mg capsule 60 mg PO DAILY 05/15/18 01/17/25 History multivitamin 1 tab PO DAILY 05/15/18 01/17/25 History cetirizine 10 mg chewable tablet 10 mg PO DAILY 09/29/18 01/17/25 History albuterol sulfate 90 mcg/actuation 2 puff inhalation Q6H PRN 03/18/22 01/17/25 Rx aerosol inhaler shortness of breath or wheezing #6.7 grams ascorbic acid (vitamin C) 500 mg 1,000 mg PO BID 09/02/22 01/17/25 History capsule [id number] C-Mn 500 0 cap PO DAILY 09/02/22 01/17/25 History mg-400 mg capsule (Glucosamine Chondroitin Maximum Strength) omega-3 fatty acids-fish oil 360 1 cap PO DAILY 09/02/22 01/17/25 History mg-1,200 mg capsule (Fish Oil) losartan 100 mg tablet 100 mg PO DAILY #90 tabs 02/06/24 01/17/25 Rx paroxetine HCl 30 mg tablet 30 mg PO DAILY #90 tabs 02/06/24 01/17/25 Rx spironolactone 25 mg tablet 25 mg PO DAILY 90 days #90 tabs 02/06/24 01/17/25 Rx amlodipine 10 mg tablet (Norvasc) 0 mg PO DAILY 01/17/25 01/17/25 History gemfibrozil 600 mg tablet 0 mg PO BID 01/17/25 01/17/25 History Past Med/Surg History Problem List (Updated 01/17/25 @ 14:23 by Armando Condon MD) Pneumonia Depression Hypertension (Chronic) Hypertriglyceridemia Encounter for health maintenance examination in adult Cervical lymphadenopathy (Acute) Anemia (Acute) Multiple pulmonary nodules (Acute) Medical History Dyslipidemia Surgical History History of mandibular surgery History of colonoscopy History of cholecystectomy Family History Mother Stroke Diabetes Hypertension Hyperlipidemia Brother Hypertension Prostate cancer Sister Lung cancer Uncle Colorectal cancer Grandfather (Maternal) Myocardial infarction Denies family history of Ovarian cancer Breast cancer Social History Smoking Status: Former smoker Tobacco Type: Cigarettes Age Started Using Tobacco: 46; Age Quit Using Tobacco: 46; packs per day: 1; Cigarettes Per Day: HX OF PREVIOUS USE, NONE FOR MANY YEARS; Second Hand Exposure: No; Do You Dip or Chew Tobacco: No; Hx Alcohol Use: Yes Alcohol type: hard liquor Alcohol Intake Frequency: Monthly or Less Hx Substance Use: No Preferred Language: Bulgarian Communication Ability: Effective Visual Impairment: Limited Hearing Ability: Normal Commercial Illustrator Required: No Beliefs That Will Affect Care: None marital status: Current Living Situation: Spouse current occupational status: employed current occupation: Processor How many Children do You have: 1 Feels Safe at Home: Yes Childhood Exposure to Second-Hand Smoke: Yes Diet: regular caffeine: Yes during the past year weight has: remained stable Dental Care, Regularly: No Physical Activity Frequency: Does not Exercise Seatbelt Use: sometimes Sunscreen Use: Yes (sometimes) Do you think of yourself as: straight/heterosexual Assistive Devices: Denture - Upper and Glasses Review of Systems Review of Systems: Negative except as in HPI Physical Exam Constitutional: WD/WN, vitals as above no acute distress Eyes: + anicteric sclerae; no eyelid abnormali ty ENMT: Ears: no external ear abnormality Nose: no external nose abnormality Neck: normal visual inspection Respiratory: normal respiratory effort Auscultation: + rhonchi (very rhonchi heard of right mid and lower lung ); no crackles, no rales and no wheezes Cardiovascular: Rate/Rhythm: regular rhythm and + tachycardic Heart Sounds: no gallop, no murmur and no cardiac rub Musculoskeletal: Gait: normal gait Neurologic: no gross deficits Psychiatric: Apperance: appropriately groomed Speech: normal rate/rhythm/volume of speech Affect: euthymic affect Results & Data Results & Data Vital Signs (Past 12 Hours) Vital Signs Temp Pulse Pulse Resp BP BP Pulse Ox 01/17/25 14:00 95 H 20 120/82 95 01/17/25 12:37 90 01/17/25 12:11 89 L 01/17/25 11:51 36.9 C 105 H 22 147/94 H 88 L O2 Del Method O2 Flow Rate 01/17/25 14:00 Nasal Cannula 2 01/17/25 12:37 01/17/25 12:11 Nasal Cannula 0 01/17/25 11:51 Room Air PG Care Time/CCT Total # of Minutes Spent Total Time Spent with Patient: Total time spent is greater than 50% in coordination of care (as documented) at patient's floor/unit and/or counseling patient: Coding Level of Care Code 71098 INT INP/OBS CARE 2MIN Diagnoses Depression F32.9 Hypertension I10 Hypertriglyceridemia E78.1 Pneumonia J18.9
[2025-01-17] MEDS: ALBUT/IPRATROP 3MG/0.5MG NEB 3 ML VIAL NEB STA (14:35)
[2025-01-17] MEDS: LACTATED RINGER'S 1,000 ML IV SCH (15:22)
[2025-01-17] MEDS ORDERED: ALBUTEROL HFA 8 GM INHALER INH PRN (15:54)
[2025-01-17] MEDS ORDERED: MELATONIN 3 MG TAB PO PRN (15:54)
[2025-01-17] MEDS ORDERED: ONDANSETRON INJ 2 MG/ML 2 ML VIAL IV PRN (15:54)
[2025-01-17] MEDS ORDERED: cefTRIAXone SODIUM 1,000 MG/50 ML BAG IV STA (15:54)
[2025-01-17] MEDS ORDERED: POLYETHYLENE (MIRALAX) 17 GM PACK PO PRN (15:54)
[2025-01-17] MEDS ORDERED: ACETAMINOPHEN 325 MG TAB PO PRN (15:54)
[2025-01-17] MEDS ORDERED: AZITHROMYCIN 500 MG/255 ML BAG IV SCH (15:54)
[2025-01-17] MEDS ORDERED: ALUMINUM/MAGNESIUM SUSP 30 ML UDC PO PRN (15:54)
[2025-01-17] MEDS ORDERED: MAGNESIUM HYDROXIDE SUSP 30 ML UDC PO PRN (15:54)
[2025-01-17 16:33] LABS: Hematocrit (blood only) 34.9 % (42.0-52.0); Hemoglobin 12.5 g/dL (14.0-18.0); Mean Corpuscular Hemoglobin 30.6 pg (25.0-34.0); Mean Corpuscular Volume 85.5 fL (80.0-100.0); Platelet Count 427 K/uL (130-400); RDW Standard Deviation 36.6 fL (36.4-46.3); Red Blood Count 4.08 M/uL (4.70-6.10); White Blood Count 17.79 K/ul (4.8-10.8)
[2025-01-17] MEDS ORDERED: AZITHROMYCIN 250 MG TAB PO ONE (16:45)
[2025-01-17 16:51] LABS: Alanine Aminotransferase 10.0 U/L (7-52); Albumin Globulin Ratio 1.3 (0.9-2); Albumin Level 4.0 gm/dl (3.4-5.0); Alkaline Phosphatase 94.0 U/L (34-104); Anion Gap 10.0 (3-11); Bilirubin,Total 0.6 mg/dl (0.2-1.0); Blood Urea Nitrogen 14.0 mg/dl (6-23); Calcium 8.2 mg/dl (8.6-10.3); Carbon Dioxide 26.0 mmol/L (21-32); Chloride 97.0 mmol/L (98-107); Creatinine Clr Calc Pharmacy 93.2 ml/min; Globulin 3.2 gm/dl (2.5-4.0); Glucose 117.0 mg/dl (70-99(Fasting)); Potassium 3.2 mmol/L (3.5-5.1); Sodium 133.0 mmol/L (136-145); Total Protein 7.2 gm/dl (6.0-8.3)
[2025-01-17] MEDS: HEPARIN SOD 5,000 UNIT/0.5 ML VIAL SQ SCH (21:40)
[2025-01-17] MEDS: COUGH DROP (SUGAR FREE) LOZ 24 LOZ/1 BOX BUCCAL ONE (21:51)
[2025-01-18] MEDS ORDERED: ALBUTEROL HFA 8 GM INHALER INH PRN (07:55)
[2025-01-18] MEDS: AZITHROMYCIN 250 MG TAB PO SCH (08:24)
[2025-01-18 08:38] LABS: Hematocrit (blood only) 32.8 % (42.0-52.0); Hemoglobin 11.7 g/dL (14.0-18.0); Mean Corpuscular Hemoglobin 30.6 pg (25.0-34.0); Mean Corpuscular Volume 85.9 fL (80.0-100.0); Platelet Count 427 K/uL (130-400); RDW Standard Deviation 37.5 fL (36.4-46.3); Red Blood Count 3.82 M/uL (4.70-6.10); White Blood Count 13.80 K/ul (4.8-10.8)
[2025-01-18 08:55] LABS: Alanine Aminotransferase 10.0 U/L (7-52); Albumin Globulin Ratio 1.1 (0.9-2); Albumin Level 3.6 gm/dl (3.4-5.0); Alkaline Phosphatase 87.0 U/L (34-104); Anion Gap 8.0 (3-11); Bilirubin,Total 0.6 mg/dl (0.2-1.0); Blood Urea Nitrogen 11.0 mg/dl (6-23); Calcium 8.4 mg/dl (8.6-10.3); Carbon Dioxide 29.0 mmol/L (21-32); Chloride 100.0 mmol/L (98-107); Creatinine Clr Calc Pharmacy 114.8 ml/min; Globulin 3.2 gm/dl (2.5-4.0); Glucose 113.0 mg/dl (70-99(Fasting)); Potassium 3.4 mmol/L (3.5-5.1); Sodium 137.0 mmol/L (136-145); Total Protein 6.8 gm/dl (6.0-8.3)
--- NOTE | 2025-01-18 10:34 | Hospitalist Progress Note ---
Date of Service January 18, 2025 Assessment & Plan (1) Depression: (2) Hypertension: (3) Hypertriglyceridemia: (4) Pneumonia: Plan 64 male Depression hypertension hyperlipidemia smoking who Presented to clinic earlier today with productive cough Chest tightness generalized feeling of unwellness and noted to be hypoxic therefore redirected to ED. Here he is noted to be Rhonchorous on examination and hypoxic placed on 2 L O2. Chest x-ray unrevealing. Respiratory PCR negative. White blood cell count 21. ED requesting admission with concern for evolving pneumonia. No pressure-like or typical chest pain. No other ischemic symptoms nausea lightheadedness diaphoresis. EKG unrevealing and troponin negative. Suspect evolving CAP Supportive care Pulmonary toilet as needed. Encourage activity Send sputum if expectorates Empirical IV Rocephin azithromycin SIRS+/sepsis in setting of the above Resolved IVFs Lactate and Pro-Marcelino WNL Acute hypoxic respiratory failure Secondary to pneumonia Wean O2 Hypertension Continue home medications Hyperlipidemia Continue home medications Depression Continue mood stabilizers DVT prophylaxis Full code Disposition Likely discharge home in 1 to 2 days Admission and Anticipated Discharge Date Admission Date: January 17, 2025 Subjective Overall feels better. No fevers chills or chest pain. Breathing improving. Still with cough. Pulmonary toilet measures upgraded. Remains on 2 L Review of Systems Review of Systems: Negative except as in HPI Physical Exam Constitutional: WD/WN, vitals as above no acute distress Eyes: + anicteric sclerae; no eyelid abnormali ty ENMT: Ears: no external ear abnormality Nose: no external nose abnormality Neck: normal visual inspection Respiratory: normal respiratory effort Auscultation: + rhonchi (very rhonchi heard of right mid and lower lung ); no crackles, no rales and no wheezes Cardiovascular: Rate/Rhythm: regular rhythm and + tachycardic Heart Sounds: no gallop, no murmur and no cardiac rub Musculoskeletal: Gait: normal gait Psychiatric: Apperance: appropriately groomed Speech: normal rate/rhythm/volume of speech Affect: euthymic affect Results & Data Results & Data Vital Signs (Past 12 Hours) Vital Signs Temp Pulse Resp BP Pulse Ox O2 Del Method O2 Flow Rate 01/18/25 09:07 91 Room Air 01/18/25 07:29 36.7 C 64 16 119/75 98 Nasal Cannula 2 01/18/25 07:05 Nasal Cannula 1 01/18/25 00:41 36.7 C 73 16 113/64 93 Nasal Cannula 2 PG Care Time/CCT Total # of Minutes Spent Total Time Spent with Patient: Total time spent is greater than 50% in coordination of care (as documented) at patient's floor/unit and/or counseling patient: Coding Level of Care Code 93965 SUB INP/OBS CARE 2/35MIN Diagnoses Depression F32.9 Hypertension I10 Hypertriglyceridemia E78.1 Pneumonia J18.9 Laterality: unspecified laterality Lung location: unspecified part of lung Pneumonia type: due to unspecified organism (4) Pneumonia Laterality: unspecified laterality Lung location: unspecified part of lung Pneumonia type: due to unspecified organism Qualified Code(s): J18.9 - Pneumonia, unspecified organism
[2025-01-18] MEDS: ALBUT/IPRATROP 3MG/0.5MG NEB 3 ML VIAL NEB SCH (12:00)
[2025-01-18] MEDS ORDERED: ALBUTEROL 0.083% NEBU SOLN 3 ML VIAL INH SCH (13:00)
[2025-01-18] MEDS ORDERED: ALBUT/IPRATROP 3MG/0.5MG NEB 3 ML VIAL INH SCH (13:00)
[2025-01-18] MEDS: cefTRIAXone SODIUM 2,000 MG/50 ML BAG IV SCH (13:51)
[2025-01-19 07:05] VITALS: RESP 18
[2025-01-19 07:25] LABS: Hematocrit (blood only) 32.1 % (42.0-52.0); Hemoglobin 11.6 g/dL (14.0-18.0); Mean Corpuscular Hemoglobin 31.0 pg (25.0-34.0); Mean Corpuscular Volume 85.8 fL (80.0-100.0); Platelet Count 454 K/uL (130-400); RDW Standard Deviation 36.4 fL (36.4-46.3); Red Blood Count 3.74 M/uL (4.70-6.10); White Blood Count 13.30 K/ul (4.8-10.8)
[2025-01-19 08:03] VITALS: BP 128/71; TEMP 97.9; O2SAT 95
[2025-01-19 08:04] LABS: Alanine Aminotransferase 15.0 U/L (7-52); Albumin Globulin Ratio 1.1 (0.9-2); Albumin Level 3.5 gm/dl (3.4-5.0); Alkaline Phosphatase 84.0 U/L (34-104); Anion Gap 7.0 (3-11); Bilirubin,Total 0.4 mg/dl (0.2-1.0); Blood Urea Nitrogen 10.0 mg/dl (6-23); Calcium 8.5 mg/dl (8.6-10.3); Carbon Dioxide 28.0 mmol/L (21-32); Chloride 99.0 mmol/L (98-107); Creatinine Clr Calc Pharmacy 121.8 ml/min; Globulin 3.1 gm/dl (2.5-4.0); Glucose 107.0 mg/dl (70-99(Fasting)); Potassium 3.2 mmol/L (3.5-5.1); Sodium 134.0 mmol/L (136-145); Total Protein 6.6 gm/dl (6.0-8.3)
[2025-01-19] MEDS: CETIRIZINE HCL 10 MG TABLET PO SCH (08:47)
[2025-01-19] MEDS: LOSARTAN POTASSIUM 50 MG TAB PO SCH (08:47)
[2025-01-19] MEDS: SPIRONOLACTONE 25 MG TAB PO SCH (08:48)
--- NOTE | 2025-01-19 10:40 | Discharge Summary ---
Discharge Summary Date of Service January 19, 2025 Principal Dx & Hospital Course #1 = Principal Diagnosis (1) Depression: (2) Hypertension: (3) Hypertriglyceridemia: (4) Pneumonia: Plan 64 male Depression hypertension hyperlipidemia smoking who Presented to clinic earlier today with productive cough Chest tightness generalized feeling of unwellness and noted to be hypoxic therefore redirected to ED. Here he is noted to be Rhonchorous on examination and hypoxic placed on 2 L O2. Chest x-ray unrevealing. Respiratory PCR negative. White blood cell count 21. ED requesting admission with concern for evolving pneumonia. No pressure-like or typical chest pain. No other ischemic symptoms nausea lightheadedness diaphoresis. EKG unrevealing and troponin negative. Suspect evolving CAP Supportive care Pulmonary toilet as needed. Encourage activity Send sputum if expectorates Empirical IV Rocephin azithromycin And discharge on Levaquin SIRS+/sepsis in setting of the above Resolved IVFs Lactate and Pro-Marcelino WNL Acute hypoxic respiratory failure Secondary to pneumonia Wean O2 Hypertension Continue home medications Hyperlipidemia Continue home medications Depression Continue mood stabilizers DVT prophylaxis Full code Disposition Home Notes For Next Care Provider Subjective Doing very well sitting up in bed tells me has been walking around no issues cleared by PT has been weaned to room air since yesterday he tells me they have taken the oxygen off sometime yesterday. No chest pain fevers chills cough shortness of breath or any other symptoms eager to go home with his understands importance close follow-up and strict return precautions Admission HPI Per Admitting Provider 64 male Depression hypertension hyperlipidemia smoking who Presented to clinic earlier today with productive cough Chest tightness generalized feeling of unwellness and noted to be hypoxic therefore redirected to ED. Here he is noted to be Rhonchorous on examination and hypoxic placed on 2 L O2. Chest x-ray unrevealing. Respiratory PCR negative. White blood cell count 21. ED requesting admission with concern for evolving pneumonia. No pressure-like or typical chest pain. No other ischemic symptoms nausea lightheadedness diaphoresis. EKG unrevealing and troponin negative. No longer with CP at time of evaluation feels better after receiving nebs. at bedside we Discussed everything extensively they were appreciative Awaiting completion of home med rec Discharge Exam Constitutional WD/WN, vitals as above no acute distress Eyes + anicteric sclerae; no eyelid abnormality ENMT Ears: no external ear abnormality Nose: no external nose abnormality Neck normal visual inspection Respiratory normal respiratory effort Auscultation: + rhonchi (very rhonchi heard of right mid and lower lung ); no crackles, no rales and no wheezes Cardiovascular Rate/Rhythm: regular rhythm and + tachycardic Heart Sounds: no gallop, no murmur and no cardiac rub Musculoskeletal Gait: normal gait Psychiatric Apperance: appropriately groomed Speech: normal rate/rhythm/volume of speech Affect: euthymic affect Discharge Plan Discharge Items Patient Disposition: Home - Self-Care Reason For Visit: PNA Discharge Diagnosis: pna Condition on Discharge: Good Activity: Resume your previous activity Non-emergency contact: Primary Care Provider Call non-emergency contact if: you have any medication questions, your symptoms worsen, your pain is not controlled and you have a fever Follow-up/Referrals: Keo Avila DO [Primary Care Provider] - Diet: Regular Addtl Attending Provider Instructions: Follow-up with your primary care doctor within a week Pending Studies at Discharge: No Stand-Alone Forms: My [employer], Smoking Cessation Medications and DC Order Prescriptions: New levofloxacin 750 mg tablet 750 mg PO DAILY 5 Days Qty: 5 0RF Continued cetirizine 10 mg tablet,chewable 10 mg PO DAILY Patient Comments: 01/17- otc unable to verify ascorbic acid (vitamin C) 500 mg capsule 1,000 mg PO BID Patient Comments: 01/17- otc unable to verify omega-3 fatty acids-fish oil [Fish Oil] 360-1,200 mg capsule 1 cap PO DAILY Patient Comments: 01/17- otc unable to verify albuterol sulfate 90 mcg/actuation HFA aerosol inhaler 2 puff inhalation Q6H PRN (Reason: shortness of breath or wheezing) Qty: 6.7 0RF Patient Comments: 01/17- no fill history unable to verify [id number]-[id number] C-Mn [Glucosamine Chondroitin MaxStr] 500-400 mg capsule 0 cap PO DAILY Patient Comments: 01/17- otc unable to verify Rx Instructions: 1000mg/1200mg spironolactone 25 mg tablet 25 mg PO DAILY 90 Days Qty: 90 3RF paroxetine HCl 30 mg tablet 30 mg PO DAILY Qty: 90 3RF Patient Comments: 01/17- last filled 09/17 90 day supply #90 losartan 100 mg tablet 100 mg PO DAILY Qty: 90 3RF multivitamin Tablet 1 tab PO DAILY Patient Comments: 01/17- otc unable to verify ginkgo biloba 60 mg Capsule 60 mg PO DAILY Patient Comments: 01/17- otc unable to verify amlodipine [Norvasc] 10 mg tablet 0 mg PO DAILY Patient Comments: 01/17-last filled 05/02 90 day supply #90 gemfibrozil 600 mg tablet 0 mg PO BID Patient Comments: 01/17-last filled 06/18 90 day #180 Discharge Orders: Discharge Order (Routine); Ordered 01/19/25 Ordered By: Armando Condon Admission Data Admit Date/Time: 01/17/25 14:19 Attending Provider: Aramndo Condon Admit Provider: Armando Condon Primary Care Provider: Keo Avila Other Providers: Armando Condon Hospital Stay Data Consultations 01/17/25 13:15 ED Decision to Admit Stat Pending Results Patient Have Any Pending Studies at Discharge: No Discharge Instructions Given to Patient (Per Discharging Provider) Follow-up with your primary care doctor within a week Total Time Total Time Spent Total Time Spent (In Minutes): 35 Coding Level of Care Code 96157 INP/OBS DISCH >30 MIN Diagnoses Depression F32.9 Hypertension I10 Hypertriglyceridemia E78.1 Pneumonia J18.9 Laterality: unspecified laterality Lung location: unspecified part of lung Pneumonia type: due to unspecified organism
[2025-01-19] MEDS: POTASSIUM CHLORIDE CRTAB 20 MEQ TABCR PO STA (10:50)
[2025-01-19 10:57] VITALS: PULSE 94
== END 2025-01-19 11:30 | disposition home or self-care (01) | DRG 871 ==
LOC: ED 11:46 → 3N 14:19 → 3W 01-18 21:40